=== PATIENT | male | born 1975 | race Caucasian/White ===

== ENCOUNTER 2018-07-22 08:48 | Inpatient (IN) ==
[2018-07-22 09:06] LABS: BE 6.4 mmoll (-3.0-3.0); BLOOD TYPE ARTERIAL; HCO3-(ACT) 29.8 mmoll (20.0-26.0); O2HB 93.4 % (95.0-99.0); PCO2(98.6) 52 mmHg (35-45); PO2(98.6) 78 mmHg (60-100); SAMPLE BLOOD; SAO2 96.5 % (95.0-100.0); THB 17.5 g/dL (11.5-17.4); pH(98.6) 7.41 (7.35-7.45)
[2018-07-22 09:08] LABS: ALLEN TEST YES; MODALITY ROOM AIR
[2018-07-22 09:20] LABS: BASO# 0.03 X1000 (0.0-0.2); BASO% 0.5 % (0.0-0.8); EOS# 0.09 X1000 (0.0-0.7); EOS% 1.5 % (0.0-10.0); HEMOGLOBIN 16.8 g/dL (14.0-18.0); IMM GRAN# 0.03 X1000 (0.0-0.04); IMM GRAN% 0.5 % (0.0-0.5); LYMPH# 1.32 X1000 (1.2-3.4); LYMPH% 21.9 % (20.5-51.1); MCH 31.2 PG (27-31); MCHC 32.3 g/dL (33-37); MCV 96.5 FL (81-99); MONO# 0.62 X1000 (0.11-0.59); MONO% 10.3 % (1.7-9.3); MPV 10.2 FL (7.4-10.4); NEUT# 3.93 X1000 (1.4-6.5); NEUT% 65.3 % (42.2-75.2); PLT 190 X1000 (130-400); RBC 5.39 XMIL (4.7-6.1); RDW 13.3 % (11.5-14.5); WBC 6.02 X1000 (4.8-10.8)
--- NOTE | 2018-07-22 09:27 | Diag Imaging Result Doc PS360 ---
EXAM: CHEST-PORTABLE HISTORY: ams TECHNIQUE: Portable chest COMPARISON: None FINDINGS: The lungs are well expanded. The heart is not enlarged. The vessels are not distended. There are no infiltrates. No effusion identified. IMPRESSION: Negative exam. Electronically signed by Ha Mahan 07/22/2018 9:25 AM
[2018-07-22 09:34] LABS: INR 0.94; PROTIME 13.1 Seconds (11.0-16.0)
[2018-07-22 09:35] LABS: PTT 29.4 Seconds (22.3-41.8)
--- NOTE | 2018-07-22 09:42 | EKG Report ---
Test Performed on : 07/22/2018 09:21:01 AM Test Reason : ams Blood Pressure : / mmHG Vent. Rate : 087 BPM Atrial Rate : 087 BPM P-R Int : 126 ms QRS Dur : 088 ms QT Int : 380 ms P-R-T Axes : 054 -08 059 degrees QTc Int : 457 ms Normal sinus rhythm. Possible Left atrial enlargement Septal infarct , age undetermined Abnormal ECG No previous ECGs available Unconfirmed Result
[2018-07-22 09:47] LABS: ALBUMIN 4.9 g/dL (3.5-5.0); CALCIUM 9.8 mg/dL (8.8-10.2); POTASSIUM 5.2 mmol/L (3.5-5.1); TOTAL BILIRUBIN 0.2 mg/dL (0.20-1.00); TOTAL PROTEIN 8.2 g/dL (6.3-8.3)
[2018-07-22 10:03] LABS: BILIRUBIN URINE NEGATIVE (NEGATIVE); BLOOD URINE NEGATIVE (NEGATIVE); CLARITY SLIGHTLY CLOUDY (CLEAR); COLOR YELLOW; KETONE URINE NEGATIVE (NEGATIVE); LEUKOCYTES URINE TRACE (NEGATIVE); NITRITE URINE NEGATIVE (NEGATIVE); PROTEIN URINE TRACE mg/dL (NEGATIVE); SP GRAVITY URINE 1.015; UROBILINOGEN URINE NORMAL
[2018-07-22 10:07] LABS: URINE BACTERIA NEGATIVE /HFP; URINE CAST NONE SEEN /LPF; URINE CRYSTAL NONE SEEN /HPF; URINE EPITHELIAL CELLS <10 /HPF (<10); URINE RBC <10 /HPF (<10); URINE SOURCE CATH; URINE WBC 20-40 /HPF (<10); URINE YEAST NONE SEEN /HPF
[2018-07-22] MEDS ORDERED: ROCEPHIN 1 GM in NS 50 ML IV ONE (10:15)
[2018-07-22] MEDS ORDERED: NS 500 ML IV ONE ×2 (10:15→10:22)
[2018-07-22] MEDS ORDERED: PERCOCET-5 PO ONE (10:19)
--- NOTE | 2018-07-22 11:31 | PROVIDER DOCUMENTATION ---
This chart was entered by Elena Hale Scribe, acting as scribe for Vero Rai MD. HPI-General Adult - General Chief Complaint: Altered Mental Status Stated Complaint: AMS Time Seen by Provider: 07/22/18 08:51 Source: patient, EMS, other (caregiver from nursing home) Unable to obtain history due to:: other (caregiver gives hx due to pt being nonverbal) Allergies/Adverse Reactions: Patient Allergies Allergy/AdvReac Type Severity Reaction Status Date / Time haloperidol [From Haldol] Allergy Unknown Verified 07/22/18 08:45 haloperidol lactate * Allergy Unknown Verified 07/22/18 08:45 [From Haldol] decanoate Allergy Unknown Uncoded 07/22/18 08:45 Home Medications: Home Medication List Medication Instructions Recorded Confirmed Last Taken Type Acetaminophen [Tylenol] 2 tab PO PRN PRN 07/16/18 07/16/18 Unknown History Aspirin [Adult Aspirin] 1 tab PO DAILY 07/16/18 07/16/18 07/16/18 History Bisacodyl [Dulcolax] 1 dose [place] PRN PRN 07/16/18 07/16/18 Unknown History Buspirone HCl 0.5 tab PO DAILY 07/16/18 07/16/18 07/16/18 History Diphenhydramine HCl [Benadryl 1 tab PO PRN PRN 07/16/18 07/16/18 Unknown History Allergy] Ergocalciferol (Vitamin D2) 1 tab PO DIRECTED 07/16/18 07/16/18 07/14/18 History [Vitamin D2] Glipizide [Glipizide Xl] 1 tab PO DAILY 07/16/18 07/16/18 07/16/18 History Guaifenesin/Dextromethorphan 1 dose PO PRN PRN 07/16/18 07/16/18 Unknown History [Robitussin Cough-Chest Dm Liq] Hydrocortisone 1% Cream 1 dose TOP 4XDAY PRN PRN 07/16/18 07/16/18 Unknown History Ibuprofen 2 tab PO PRN PRN 07/16/18 07/16/18 Unknown History Levetiracetam 1 tab PO BID 07/16/18 07/16/18 07/16/18 History Loperamide HCl [Imodium A-D] 1 - 2 cap PO PRN PRN 07/16/18 07/16/18 Unknown History Lorazepam 1 tab PO QHS 07/16/18 07/16/18 07/15/18 History Mag Hydrox/Al Hydrox/Simeth 1 dose PO PRN PRN 07/16/18 07/16/18 Unknown History [Mylanta Double-Strength Liq] Magnesium Citrate [Citrate of 1 dose PO PRN PRN 07/16/18 07/16/18 Unknown Hist ory Magnesia] Magnesium Hydroxide [Milk of 1 dose PO PRN PRN 07/16/18 07/16/18 Unknown History Magnesia] Neomycin Olmos/Bacitrac Zn/Poly 1 dose TOP PRN PRN 07/16/18 07/16/18 Unknown Histo ry [Triple Antibiotic Ointment] Nut.tx.gluc.intoler,Lac-Fr,Soy 1 dose PO BID 07/16/18 07/16/18 07/16/18 History [Glucerna] Omeprazole 1 tab PO DAILY 07/16/18 07/16/18 07/16/18 History Ondansetron HCl [Zofran] 1 tab PO PRN PRN 07/16/18 07/16/18 Unknown History Oxcarbazepine 1 tab PO BID 07/16/18 07/16/18 07/16/18 History Phenol 1.4% Stover [Chloraseptic 1 dose TOP DIRECTED PRN 07/16/18 07/16/18 Unknown History Stover] Polyethylene Glycol [Peg] 1 dose PO DAILY 07/16/18 07/16/18 07/16/18 History Sennosides [Senna] 2 tab PO QHS 07/16/18 07/16/18 07/15/18 History Sitagliptin Phosphate [Januvia] 1 tab PO DAILY 07/16/18 07/16/18 07/16/18 History - History of Present Illness -Gen Adult Nature of Presenting Problems: 43 yowm presents to the ed via ems with nursing home caregiver at bedside. caregiver sts pt had a seizure 6 days prior and since seizure pt has had decreased oral intake, fatigue, AMS. pt per caregiver in interactive with her and staff and ambulates and stands. pt has been less available since xochilt a nd is nonverbal. pt will follow commands on exam and when physcian palpates pt suprapubic abdomen he tries to gaurd and shows distress on face. pt has hx of cerebral palsy and seizures Location of Pain/Injury: reports: abdomen (suprapubic tenderness), generalized (weakness and fatigue) Quality of Pain: reports: other (weakness) Severity: reports: moderate Onset/Duration: reports: 6 days ago Timing: reports: still present Context/Activities at Onset: reports: other (onset after seizure activity 6 days prior) Modifying Factors: improves with: nothing Associated Symptoms: reports: fatigue, loss of appetite, seizure, weakness, trouble walking. denies: cough, diarrhea, fever/chills, nausea, shortness of breath, syncope, vomiting Similar Symptoms Previously?: Yes (hx of seizure) Recently seen or treated by another doctor?: No Review of Systems - Adult - REVIEW OF SYSTEMS - ADULT ROS:: caregiver gives all hx Constitutional: reports: see HPI, naida. denies: fever Eyes: reports: no symptoms reported Ears, Nose, Mouth & Throat: reports: no symptoms reported Cardiovascular: denies: chest pain, palpitations Respiratory: denies: cough, shortness of breath, wheezing Gastrointestinal: reports: abdominal pain (suprapubic), poor appetite. denies: diarrhea, nausea, vomiting Genitourinary: reports: no symptoms reported Musculoskeletal: reports: see HPI, muscle weakness Integumentary: reports: no symptoms reported Neurological: reports: see HPI, seizure, other (nonverbal) Psychiatric: reports: no symptoms reported Endocrine: reports: no symptoms reported Hematologic/Lymphatic: reports: no symptoms reported Allergic/Immunologic: reports: no symptoms reported All Other Systems: Reviewed and Negative Past History - Adult - PAST MEDICAL HISTORY-ADULT Review of Records: reports: Nursing Assessment Review, Medications Reviewed Major Childhood Illnesses: reports: denies history Cardiovascular: reports: denies history Respiratory: reports: denies history Gastrointestinal: reports: denies history Genitourinary: reports: denies history Musculoskeletal: reports: denies history Hand Dominance: Right Handed Neurological: reports: cognitive dysfunction, Seizures/Epilepsy, speech difficulty, other (CP) Psychiatric: reports: other (MR) Endocrine/Immune: reports: Diabetes Diabetes Type: Type 2 Other Conditions: reports: denies history - PRIOR SURGERIES/PROCEDURES Surgical/Procedure History: reports: none - IMMUNIZATION STATUS Childhood Immunizations: See Nurse Assessment Flu Vaccine: See Nurse Assessment - FAMILY HISTORY Family History: reviewed, not pertinent - SOCIAL HISTORY Smoking: non-smoker Substance Use: none/never Living Situation: group Physical Exam-General - PHYSICAL EXAM-ADULT Initial Vital Signs Reviewed: Yes - CONSTITUTIONAL General Appearance: alert, thin, other (pt is resting and will respond with his eyes and fiollow commands but is nonverbal) - EYES Eyes: PERRL/EOMI, pale conjunctivae - HEAD, EARS, NOSE, MOUTH & THROAT HENMT: negative: moist mucous membranes (dry oral) - NECK Neck: full range of motion, normal inspection - RESPIRATORY Respiratory: chest non-tender, lungs clear, normal breath sounds - CARDIOVASCULAR Cardiovascular: normal peripheral pulses, regular rate, rhythm - GASTROINTESTINAL (ABDOMEN) Abdominal Exam: normal bowel sounds, soft, no organomegaly, no pulsatile mass, guarding (suprapubic). negative: rigid, rebound - LYMPHATIC Lymphatic: no adenopathy - MUSCULOSKELETAL Back Exam: normal inspection, no CVA tenderness, no vertebral tenderness Extremity: normal inspection, no pedal edema, no calf tenderness, normal capillary refill. negative: normal gait - SKIN Integumentary: warm/dry, pallor - NEUROLOGIC Neurologic: other (pt is a MR pt) - PSYCHIATRIC Psych/Mental Status: other (pt is nonverbal on exam) Progress - PLAN OF CARE/RESULTS Progress/Plan/Lab Results: Vital Signs - 8 hr 07/22/18 08:31 Temperature 97.4 F L Pulse Rate 88 Respiratory Rate 14 Blood Pressure 178/116 O2 Sat by Pulse Oximetry 95 Laboratory Results - last 24 hr 07/22/18 08:46 POC Glucose 237 H Orders Category Date Time Status Cardiac Monitoring DIRECTED Care 07/22/18 08:47 Active Saline Loc NOW Care 07/22/18 08:47 Active CHEST-PORTABLE [RAD] Stat Exams 07/22/18 08:47 Ordered ABG [RESP] Routine Lab 07/22/18 08:47 Ordered BLOOD CULTURE [BLDCUL] Stat Lab 07/22/18 08:48 Uncollected CBC WITH ELECTRONIC DIFF [HEME] Stat Lab 07/22/18 08:47 Uncollected CK PROFILE [SP CHEM] Stat Lab 07/22/18 08:47 Uncollected COMPREHENSIVE METABOLIC PANEL [CHEM] Stat Lab 07/22/18 08:47 Uncollected LACTATE, PLASMA [CHEM] Stat Lab 07/22/18 08:47 Uncollected PROTIME WITH INR [COAG] Stat Lab 07/22/18 08:47 Uncollected PTT [COAG] Stat Lab 07/22/18 08:47 Uncollected TROPONIN T Stat Lab 07/22/18 08:47 Uncollected UA NIMS W/REFLEX CULT [URINALYSIS] Stat Lab 07/22/18 08:56 Uncollected Altered Mental Status Stat Oth 07/22/18 08:46 Ordered EKG [EKG] Stat Ther 07/22/18 08:47 Ordered Result Diagrams: 07/22/18 08:55 07/22/18 08:55 - REASSESSMENT Reassessment #1 Time Reassessed: 09:56 Status: unchanged Reassessment #2 Time Reassessed: 11:15 Status: unchanged - EKG 1 Time of EKG reading by physician:: 09:21 EKG Read and Signed by:: Vero Rai EKG Interpretation (*Must complete 3 of following elements*): Abnormal Rate: 87 Rhythm: NSR [place]: normal QRS: other (possible left atrial enlargement) [place] Interval: normal ST Wave: normal Comments: septal infarct, age undettermined - XRAY 1 XRAY: Bilateral XRAY Study: Chest Impression: See EMR Report (EXAM: CHEST-PORTABLE HISTORY: ams TECHNIQUE: Portable chest COMPARISON: None FINDINGS: The lungs are well expanded. The h eart is not enlarged. The vessels are not distended. There are no infiltrates. No effusion identified. IMPRESSION: Negative exam. Electronically signed by Ha Mahan 07/22/2018 9:25 AM 07/22/18924 Interpreting Physician: Ha Mahan MD Dictated Date/Time: 07/22/18923 cc: Vero Rai MD;) - CONSULTS/PCP/HOSPITALIST Notification #1 *Consult/PCP/Hospitalist*: hospitalist dr chowdhury Time Discussed: 11:25 Consult Disposition: Admit Departure - Departure Date of Disposition Decision: 07/22/18 Time of Disposition Decision: 11:28 DIAGNOSIS: Hypernatremia, Dehydration Disposition: ADMITTED INPATIENT 09 Certified Medical Emergency: Emergent Condition: Stable Referrals and Follow-Ups: Alexia Ruby [Primary Care Provider] - - Critical Care Note This patient required my direct & personal management of CC.: Yes Total Time (mins): 32 Critical Care Statement: This patient required my direct personal management to treat or rule out processes, the absence of which, could potentiallly result in sudden, clinically significant life or limb threatening deterioration. Attestation - Physician/ MARIANGEL Attestation Patient care was provided by Advanced Practice Provider:: No The physician spent face to face time with patient:: Yes Advanced Practice Provider documentation review:: Supervising physician onsite and consulted in the evaluation and care of this patient. The physician did have a face to face encounter with the patient. This chart was documented by the indicated scribe, (Elena Hale Scribe) and accurately reflects the services I performed and decisions made by me, Vero Rai MD, as attested by the provider's signature.
[2018-07-22] MEDS ORDERED: TYLENOL PO PRN (12:29)
[2018-07-22] MEDS ORDERED: ZOFRAN IV PRN (12:29)
[2018-07-22] MEDS: NS 1,000 ML IV SCH ×2 (14:00→21:10)
[2018-07-22] MEDS ORDERED: MAALOX PLUS LIQUID PO PRN (14:50)
[2018-07-22] MEDS ORDERED: ZOFRAN ODT PO PRN (14:50)
[2018-07-22] MEDS ORDERED: CITRATE OF MAGNESIA PO PRN (14:50)
[2018-07-22] MEDS ORDERED: ACETAMINOPHEN PO PRN (14:50)
[2018-07-22] MEDS ORDERED: BENADRYL PO PRN (14:50)
[2018-07-22] MEDS ORDERED: MOTRIN PO PRN (14:50)
[2018-07-22] MEDS ORDERED: DULCOLAX PR PRN (14:50)
[2018-07-22] MEDS ORDERED: HYDROCORTISONE 1% CREAM TOP PRN (14:50)
[2018-07-22] MEDS ORDERED: ROBITUSSIN-DM PO PRN (14:50)
[2018-07-22] MEDS ORDERED: NEOSPORIN OINTMENT PACKET TOP PRN (14:50)
--- NOTE | 2018-07-22 15:43 | HISTORY AND PHYSICAL ---
PRIMARY CARE PROVIDER: Alexia Ruby NP. CHIEF COMPLAINT: Altered mental status. HISTORY OF PRESENT ILLNESS: Mr. Badillo is a 43-year-old male who carries a past medical history of seizures, epilepsy, cognitive dysfunction, speech difficulty, MR, type 2 diabetes. Per caregiver report, he was brought into the ED on 07/16/2018 for a seizure, but it had actually been a while since he has had seizures. Per their report, he has been compliant with his medications. He has had a couple more seizures since he was last seen in the ED. He was brought in today again for altered mental status, decreased oral intake. In the ED he was found to be dehydrated and hypernatremic with a acute kidney injury. He was given IV fluid boluses and had some improvement in his mentation. He was responding more and he was more awake and alert. He continues to remain awake and alert. Again, he is nonverbal. He is not able to give any type of history. He does have a caregiver at bedside and will have a caregiver 01/09. REVIEW OF SYSTEMS: Twelve-point review of systems hard to obtain secondary to patient's cognitive dysfunction. He is lying in the bed. He is awake. He is alert, nonverbal. Per caregiver, he is looking more like himself. PAST MEDICAL HISTORY: Cognitive dysfunction, seizures, epilepsy, nonverbal, mental retardation, type 2 diabetes, seizure disorder. SOCIAL HISTORY: Patient lives at the [facility] home where he has 24 hour caregivers. PAST SURGICAL HISTORY: None. ALLERGIES: Haldol and decanoate. HOME MEDICATIONS: 1. Tylenol 2 tablets p.o. p.r.n. 2. Aspirin 1 tablet p.o. daily. 3. Dulcolax 1 dose p.r. p.r.n. 4. Buspirone 0.5 tablet p.o. daily. 5. Benadryl 1 capsule p.o. daily p.r.n. 6. Vitamin D 1 capsule p.o. q.7 days. 7. Glipizide XL 1 tablet p.o. daily. 8. Robitussin cough 1 dose p.o. p.r.n. 9. Hydrocodone cream 1 dose topical 4 times a day p.r.n. 10. Ibuprofen 2 tablets p.o. p.r.n. 11. Keppra 1 tablet p.o. b.i.d. 12. Imodium 1 to 2 capsules p.o. p.r.n. 13. Ativan 1 tablet p.o. at bedtime. 14. Mylanta 1 dose p.o. p.r.n. 15. Magnesium citrate 1 dose p.o. p.r.n. 16. Triple antibiotic ointment 1 dose topical p.r.n. 17. Glucerna 1 dose p.o. b.i.d. 18. Prilosec 1 tablet p.o. daily. 19. Zofran 1 tablet p.o. p.r.n. 20. Oxcarbazepine 2 tablets p.o. b.i.d. 21. Chloraseptic spray 5 sprays p.o. q.2 hours p.r.n. 22. MiraLAX 1 teaspoon p.o. daily. 23. Senna 2 tablets p.o. daily. 24. Januvia 1 tablet p.o. daily. PHYSICAL EXAMINATION: VITAL SIGNS: Temperature is 97.4 degrees, heart rate 86, respirations 16, blood pressure is 174/97, O2 is 99% on room air. GENERAL: Mr. Badillo is a 43-year-old male who is lying in bed, awake and alert. He is nonverbal, in no acute distress. HEENT: Atraumatic, normocephalic. PERRL. Mucous membranes are dry. CARDIOVASCULAR: S1, S2 appreciated. No murmurs, gallops, or rubs noted. RESPIRATORY: Lung sounds clear bilaterally. GI: Flat, soft, nontender, nondistended. Positive bowel sounds 4 quadrants. EXTREMITIES: Negative for edema. No signs of clubbing or cyanosis. NEUROLOGIC: Patient has a cognitive dysfunction, MR, nonverbal but he is awake, alert in bed. DIAGNOSTIC DATA: Chest x-ray was a negative exam. EKG: Normal sinus rhythm. LABORATORY DATA: White count 6, hemoglobin and hematocrit 16 and 52, platelet count 190,000. ABG, pH 7.41, pCO2 was 52, PO2 78, base excess was 6.4, lactate 0.9. Chemistry: Sodium 159, potassium 5.2, BUN 57, creatinine 2, blood glucose was 269, ALT was 47. Troponin less than 0.010. ASSESSMENT AND PLAN: 1. Dehydration secondary to decreased oral intake. He was given a 1 L bolus in the ED. He currently has normal saline running at 150 and we will continue. 2. Hypernatremia secondary to dehydration. We will continue with IV fluids and encourage p.o. since the patient is now more awake and alert. We will place him on a diabetic diet. 3. Acute kidney injury. We will continue to monitor his kidney function and continue with IV fluids. 4. Mild hyperkalemia. We will recheck his potassium in the a.m. after IV hydration. 5. Diabetes mellitus type 2. Continue diabetic diet. We will check hemoglobin A1c. Place him on sliding scale with pattern blood sugars. 6. Seizure disorder. Aware. Will continue home medications. 7. Metabolic encephalopathy secondary to dehydration. 8. Cognitive dysfunction. The patient is nonverbal, mental retardation. 9. Further recommendations to follow physician evaluation, laboratory and diagnostic data. Dictated by CHERLELE Moon for Jens Boothe MD cc: Jens Boothe MD
[2018-07-22] MEDS ORDERED: PNEUMOVAX 23 IM ONE (17:00)
[2018-07-22] MEDS ORDERED: MOVANTIK PO ONE (17:14)
[2018-07-22] MEDS ORDERED: APRESOLINE IV PRN (17:15)
[2018-07-22] MEDS: HUMALOG (PARKWAY) SUBQ SCH ×2 (17:44→21:10)
--- NOTE | 2018-07-22 20:23 | HISTORY AND PHYSICAL ---
ADDENDUM TO HISTORY AND PHYSICAL: Patient seen and examined by myself. Full note dictated and discussed with nurse practitioner. Patient has apparently been refusing to drink for the past several days. He actually on exam right now is drinking very little. Hopefully, this will continue to improve. On exam, he has an elevated sodium level and is clinically dehydrated. We will admit him to the hospital, give him IV fluids and will follow. Please see full note. cc: Jens Boothe MD
[2018-07-22] MEDS ORDERED: NUT TX GLUC INTOLER LAC FR SOY PO SCH (21:00)
[2018-07-22] MEDS: KEPPRA PO SCH (21:09)
[2018-07-22] MEDS: TRILEPTAL PO SCH (21:10)
[2018-07-22] MEDS: ATIVAN PO SCH (21:10)
[2018-07-23] MEDS: NS 1,000 ML IV SCH (03:56)
[2018-07-23] MEDS: HUMALOG (PARKWAY) SUBQ SCH ×4 (06:47→20:42)
[2018-07-23] MEDS: PRILOSEC PO SCH (06:47)
[2018-07-23 07:00] LABS: BASO# 0.02 X1000 (0.0-0.2); BASO% 0.3 % (0.0-0.8); EOS# 0.24 X1000 (0.0-0.7); EOS% 4.1 % (0.0-10.0); HEMATOCRIT 41.5 % (42.0-52.0); IMM GRAN# 0.04 X1000 (0.0-0.04); IMM GRAN% 0.7 % (0.0-0.5); LYMPH# 1.61 X1000 (1.2-3.4); LYMPH% 27.6 % (20.5-51.1); MCH 31.2 PG (27-31); MCV 97.4 FL (81-99); MONO# 0.46 X1000 (0.11-0.59); MONO% 7.9 % (1.7-9.3); MPV 10.4 FL (7.4-10.4); NEUT# 3.46 X1000 (1.4-6.5); NEUT% 59.4 % (42.2-75.2); PLT 166 X1000 (130-400); RBC 4.26 XMIL (4.7-6.1); RDW 12.8 % (11.5-14.5); WBC 5.83 X1000 (4.8-10.8)
[2018-07-23 07:02] LABS: HEMOGLOBIN 13.3 g/dL (14.0-18.0)
[2018-07-23 07:23] LABS: POTASSIUM 3.9 mmol/L (3.5-5.1)
[2018-07-23 07:24] LABS: ALBUMIN 3.5 g/dL (3.5-5.0); CREATININE 1.3 mg/dL (0.7-1.2); TOTAL BILIRUBIN 0.3 mg/dL (0.20-1.00); TOTAL PROTEIN 6.4 g/dL (6.3-8.3)
--- NOTE | 2018-07-23 07:27 | Diag Imaging Result Doc PS360 ---
EXAM: CHEST-PORTABLE - 07/23/2018 HISTORY: follow up TECHNIQUE: Portable chest COMPARISON: 07/22/2018 FINDINGS: Heart size appears normal. Inspiration is mildly shallow. The lungs appear clear. There is no pleural effusion or pneumothorax identified. IMPRESSION: Mildly shallow inspiration. No other evidence of acute disease. Electronically signed by Jason Joiner 07/23/2018 7:25 AM
[2018-07-23] MEDS ORDERED: LINZESS PO ONE (08:09)
[2018-07-23] MEDS: BUSPAR PO SCH (10:17)
[2018-07-23] MEDS: SENOKOT PO SCH (10:18)
[2018-07-23] MEDS: ASPIRIN EC PO SCH (10:18)
[2018-07-23] MEDS: KEPPRA PO SCH ×2 (10:18→20:42)
[2018-07-23] MEDS: TRILEPTAL PO SCH ×2 (10:18→20:42)
[2018-07-23] MEDS: JANUVIA PO SCH (10:18)
[2018-07-23] MEDS: MIRALAX PO SCH (10:18)
[2018-07-23] MEDS: GLUCOTROL XL PO SCH (10:18)
--- NOTE | 2018-07-23 12:04 | PROGRESS NOTE ---
DATE: 07/23/2018 SUBJECTIVE: The sitter notes that he is starting to drink better. Still not back to his baseline but much improved from where he was previously. OBJECTIVE: Vital signs reviewed. He is afebrile. Blood pressure is stable. Heart rate is stable. General: The patient is awake. He is much more pleasant today than yesterday. His color appears improved. His mental status appears improved. He is smiling. HEENT: Normocephalic and atraumatic. Neck: Supple. Cardiovascular: Regular rate. Chest: Clear. Abdomen: Soft, nondistended. Extremities: Moves all extremities. ASSESSMENT: 1. Constipation. We will try Linzess to see if this well help. 2. Hypernatremia. 3. Hyperkalemia, resolved. 4. Diabetes. 5. Metabolic encephalopathy, improved. 6. Severe cognitive dysfunction, nonverbal. PLAN: We will continue the patient in the hospital. His acute kidney injury seems to be improving. We will stop his normal saline at this point, as he still has a sodium at 158. His potassium and creatinine both are improving. Hopefully he will continue to drink and possibly even discharge home tomorrow if his labs are continuing to improve. cc: Jens Boothe MD
[2018-07-23] MEDS: ATIVAN PO SCH (20:42)
[2018-07-24 05:06] LABS: HEMATOCRIT 41.2 % (42.0-52.0); HEMOGLOBIN 13.6 g/dL (14.0-18.0); MCH 31.1 PG (27-31); MCV 94.3 FL (81-99); MPV 9.9 FL (7.4-10.4); RBC 4.37 XMIL (4.7-6.1); RDW 12.2 % (11.5-14.5); WBC 9.81 X1000 (4.8-10.8)
[2018-07-24 05:57] LABS: AGAP 12; ALBUMIN 3.8 g/dL (3.5-5.0); ALKALINE PHOSPHATASE 68 U/L (32-122); BUN 22 mg/dL (8-22); CALCIUM 8.4 mg/dL (8.8-10.2); CHLORIDE 112 mmol/L (98-107); COSMO 303; ESTIMATED GFR > 60; GLUCOSE 133 mg/dL (70-104); GOT 18 U/L (10-34); GPT 25 U/L (10-44); MAGNESIUM 1.7 mg/dL (1.5-2.7); POTASSIUM 3.9 mmol/L (3.5-5.1); SODIUM 150 mmol/L (136-145); TCO2 27 mmol/L (25-35); TOTAL PROTEIN 6.9 g/dL (6.3-8.3)
[2018-07-24] MEDS: PRILOSEC PO SCH (06:06)
[2018-07-24] MEDS: HUMALOG (PARKWAY) SUBQ SCH ×3 (06:06→11:22)
[2018-07-24 07:27] VITALS: BP 144/81
[2018-07-24] MEDS: SENOKOT PO SCH (08:43)
[2018-07-24] MEDS: KEPPRA PO SCH (08:43)
[2018-07-24] MEDS: MIRALAX PO SCH (08:43)
[2018-07-24] MEDS: JANUVIA PO SCH (08:43)
[2018-07-24] MEDS: GLUCOTROL XL PO SCH (08:43)
[2018-07-24] MEDS: BUSPAR PO SCH (08:44)
[2018-07-24] MEDS: ASPIRIN EC PO SCH (08:44)
[2018-07-24] MEDS: TRILEPTAL PO SCH (08:44)
--- NOTE | 2018-07-24 19:22 | DISCHARGE SUMMARY ---
ADMISSION DATE: 07/22/2018 DISCHARGE DATE: 07/24/2018 DISCHARGE DIAGNOSES: 1. Hypernatremia, improved. 2. Dehydration, resolved. 3. Acute metabolic encephalopathy, resolved back to his baseline cognitive impairment. 4. Chronic cognitive impairment, nonverbal. 5. Diabetes. CONSULTATIONS: None. PROCEDURES: None. BRIEF HOSPITAL COURSE: The patient is a 43-year-old male who for some reason decided to stop drinking at his skilled nursing. He became dehydrated. He was brought to the hospital and noted to be in acute renal failure which has resolved and hypernatremic which also has resolved. Thankfully, he is back to his baseline for the staff and he is drinking well. Therefore, he will be discharged home. DISPOSITION: The patient will be discharged home. No changes made on his chronic home medications as noted on the HPI dated 07/22. We will continue to encourage him to drink. He should have labs checked next week just to make sure that he is continuing to improve. TIME SPENT: Greater than 30 minutes was spent in total care. cc: Jens Boothe MD
[2018-07-28] MEDS ORDERED: VITAMIN D PO SCH (09:00)
== END 2018-07-24 13:00 | disposition home or self-care (01) | DRG 682 ==
LOC: P.ED 08:48 → P.MEDSURG 12:08
PROVIDERS: ATTEND Family Medicine
CPT/HCPCS: 71010; 71045; 80053; 81001; 82550; 82805; 82948; 83605; 83735; 84484; 85025; 85027; 85610; 85730; 87040; 87088; 93005; 94761; A9270; J0696; J1815; J7030; J7040; XXXXX